=== PATIENT | female | born 1970 | race Caucasian/White ===

== ENCOUNTER 2025-07-13 05:48 | Inpatient (IN) ==
--- NOTE | 2025-07-01 15:18 | PAT Medication Instructions ---
Medication Instructions Date of Service July 01, 2025 Home Medications Medication Instructions Recorded lisinopril 20 mg tablet 20 mg PO QAM #90 tabs 01/14/25 venlafaxine 150 mg 150 mg PO QAM #90 caps 01/14/25 capsule,extended release 24 hr albuterol sulfate 90 mcg/actuation 2 puff inhalation Q6H PRN 05/12/25 aerosol inhaler shortness of breath or wheezing #6.7 grams gabapentin 800 mg tablet 800 mg PO TID PRN pain #90 tabs 05/12/25 semaglutide 2 mg/dose (8 mg/3 mL) 2 mg (0.75 mL) subcut Q7D #3 mL 05/12/25 subcutaneous pen injector furosemide 20 mg tablet (Lasix) 20 mg PO QAM #90 tabs 06/02/25 ondansetron HCl 4 mg tablet 4 mg PO BID PRN nausea and 06/02/25 vomiting #60 tabs celecoxib 200 mg capsule (Celebrex) 200 mg PO QAM #90 caps 07/01/25 multivitamin 1 tab PO QAM Saccharomyces boulardii 250 mg capsule (Daily Probiotic (S. boulardii)) 250 mg PO QAM lisinopril 20 mg tablet 20 mg PO QAM venlafaxine 150 mg capsule,extended release 24 hr 150 mg PO QAM albuterol sulfate 90 mcg/actuation aerosol inhaler 2 puff inhalation Q6H PRN shortness of breath or wheezing gabapentin 800 mg tablet 800 mg PO TID PRN pain semaglutide 2 mg/dose (8 mg/3 mL) subcutaneous pen injector 2 mg (0.75 mL) subcut Q7D furosemide 20 mg tablet (Lasix) 20 mg PO QAM ondansetron HCl 4 mg tablet 4 mg PO BID PRN nausea and vomiting celecoxib 200 mg capsule (Celebrex) 200 mg PO QAM duloxetine 40 mg capsule,delayed release 40 mg PO QAM fluticasone 100 mcg-salmeterol 50 mcg/dose blistr powdr for inhalation (Advair Diskus) 1 inh inhalation QAM lidocaine 5 % topical patch 1 patch topical DAILY PRN Pain omeprazole 40 mg capsule,delayed release 40 mg PO QAM Continue as directed lidocaine 5 % topical patch 1 patch topical DAILY PRN Pain (just do not put on or near surgery site) ASK your surgeon for instructions celecoxib 200 mg capsule (Celebrex) 200 mg PO QAM STOP taking at least 7 days before surgery semaglutide 2 mg/dose (8 mg/3 mL) subcutaneous pen injector 2 mg (0.75 mL) subcut Q7D DO NOT take the morning of surgery multivitamin 1 tab PO QAM Saccharomyces boulardii 250 mg capsule (Daily Probiotic (S. boulardii)) 250 mg PO QAM lisinopril 20 mg tablet 20 mg PO QAM furosemide 20 mg tablet (Lasix) 20 mg PO QAM Take morning of surgery With a small sip of water, OTHERWISE NOTHING TO EAT OR DRINK AFTER MIDNIGHT: venlafaxine 150 mg capsule,extended release 24 hr 150 mg PO QAM albuterol sulfate 90 mcg/actuation aerosol inhaler 2 puff inhalation Q6H PRN shortness of breath or wheezing (use if needed; please bring with you to hospital day of surgery if possible) gabapentin 800 mg tablet 800 mg PO TID PRN pain (if needed) ondansetron HCl 4 mg tablet 4 mg PO BID PRN nausea and vomiting (if needed) duloxetine 40 mg capsule,delayed release 40 mg PO QAM fluticasone 100 mcg-salmeterol 50 mcg/dose blistr powdr for inhalation (Advair Diskus) 1 inh inhalation QAM omeprazole 40 mg capsule,delayed release 40 mg PO QAM Take evening before surgery albuterol sulfate 90 mcg/actuation aerosol inhaler 2 puff inhalation Q6H PRN shortness of breath or wheezing (if needed) gabapentin 800 mg tablet 800 mg PO TID PRN pain (if needed) ondansetron HCl 4 mg tablet 4 mg PO BID PRN nausea and vomiting (if needed) Other Notes If you have any questions please call us at [phone] or [phone] or [phone] or [phone]
--- NOTE | 2025-07-06 13:15 | Anesthesiology Consultation ---
Date of Service July 06, 2025 Assessment & Plan (1) Encounter for pre-operative examination: - Check BSG, test DOS - Infectious disease screening: Per assessment on 07/06/25- No known recent infectious disease contacts or current infectious disease symptoms. - GLP-1 medication instructions: Patient informed by PAT to stop 7 days prior to surgery- voiced understanding. DOS 07/13. Advised last dose to be 07/06. - S/P Right Shoulder Arthroscopy, Rotator Cuff Repair, Extensive Debridement, Acromioplasty 02/12/25: "oral airway inserted. Bottom teeth extremely loose. Poor dentition. Front gums + bottom front gums bleeding from oral airway. glidescope inserted. teeth as preop. Will monitor closely." > Grade 1 view, Glidescope#3, ETT 7.0 + regional, [facility] - Patient concern: Patient worried about waking up too early from surgery or being given too much. Anxious regarding upcoming surgery/anesthesia. Chart Review Chart Review: Acceptable Risk for Surgery (pending evaluation DOS) and Patient seen in Pre Admission Testing Teaching & Discussion Pre-Anesthesia Teaching/Discussion Notes: Instructed NPO after midnight before surgery,except medications with 15 cc of water. Medication instructions provided according to the PAT guidelines. History Surgery Operation Date: 07/13/25 07:30 Proposed Procedures p L4-L5 Extreme Lateral Interbody Fusion Percutaneous Post Instrumentation, Spinal Cord Monitoring - Clint Taylor MD Height/Weight Height: 5 ft 8 in Weight: 139.6 kg Allergies Allergy/AdvReac Type Severity Reaction Status Date / Time tetracycline Allergy Severe Hives Verified 07/01/25 14:02 ketorolac [From Toradol] AdvReac Intermediate Abdominal Verified 07/01/25 14:02 Pain tramadol AdvReac Intermediate Abdominal Verified 07/01/25 14:02 Pain Medications Home Medications Medication Instructions Recorded Confirmed Last Taken multivitamin 1 tab PO QAM 12/24/24 07/01/25 02/05/25 Saccharomyces boulardii 250 mg 250 mg PO QAM 12/26/24 07/01/25 1 Week Ago capsule (Daily Probiotic (S. ~02/05/25 boulardii)) lisinopril 20 mg tablet 20 mg PO QAM #90 tabs 01/14/25 07/01/25 02/12/25 07:30 venlafaxine 150 mg 150 mg PO QAM #90 caps 01/14/25 07/01/25 02/12/25 07:30 capsule,extended release 24 hr albuterol sulfate 90 mcg/actuation 2 puff inhalation Q6H PRN 05/12/25 07/01/25 Unknown aerosol inhaler shortness of breath or wheezing #6.7 grams gabapentin 800 mg tablet 800 mg PO TID PRN pain #90 tabs 05/12/25 07/01/25 Unknown semaglutide 2 mg/dose (8 mg/3 mL) 2 mg (0.75 mL) subcut Q7D #3 mL 05/12/25 07/01/25 Unknown subcutaneous pen injector furosemide 20 mg tablet (Lasix) 20 mg PO QAM #90 tabs 06/02/25 07/01/25 Unknown ondansetron HCl 4 mg tablet 4 mg PO BID PRN nausea and 06/02/25 07/01/25 Unknown vomiting #60 tabs celecoxib 200 mg capsule (Celebrex) 200 mg PO QAM #90 caps 07/01/25 Unknown duloxetine 40 mg capsule,delayed 40 mg PO QAM 07/01/25 07/01/25 Unknown release fluticasone 100 mcg-salmeterol 50 1 inh inhalation QAM 07/01/25 07/01/25 Unknown mcg/dose blistr powdr for inhalation (Advair Diskus) lidocaine 5 % topical patch 1 patch topical DAILY PRN Pain 07/01/25 07/01/25 Unknown omeprazole 40 mg capsule,delayed 40 mg PO QAM #90 caps 07/06/25 Unknown release Past Medical History Medical History Anxiety Asthma DM2 (diabetes mellitus, type 2) Ozempic weekly Dysphagia Chronic, now rare episode r/t food, improved with omeprazole Fibromyalgia HTN (hypertension), benign Hx of gout Hx of hepatitis C Non-detectable now (s/p oral med treatment) Hx of ovarian cyst Low back pain Obesity, morbid, BMI 40.0-49.9 Osteoarthritis Post traumatic stress disorder Restless leg syndrome Spinal stenosis Spondylolisthesis at L4-L5 level Seeing [place] pain managment Exercise / Class Metabolic Activity III < 4 Walking/Shop/Light housework Past Family History Family History Mother Diabetes Grandmother (Maternal) Rheumatoid arthritis Osteoporosis Heart disease Other No family history of adverse response to anesthesia Past Surgical History Surgical History H/O breast biopsy benign H/O shoulder surgery (02/12/25) Right Shoulder Arthroscopy, Rotator Cuff Repair, Extensive Debridement, Acromioplasty: "oral airway inserted. Bottom teeth extremely loose. Poor dentition. Front gums + bottom front gums bleeding from oral airway. glidescope inserted. teeth as preop. Will monitor closely." > Grade 1 view, Glidescope#3, ETT 7.0 + regional, [facility] History of cholecystectomy (2020) History of esophagogastroduodenoscopy (EGD) 12/2024 History of postoperative nausea and vomiting History of tooth extraction Hx of section x1 Hx of colonoscopy 12/2024 Hx of dilation and curettage Hx of tonsillectomy Past Anesthesia History No Hx of Anesthesia Complications and No Family Hx of Anesthesia Complications History of PONV History of PONV (Single episode) and Hx of Motion Sickness Social History Smoking Status: Never smoker Do You Dip or Chew Tobacco: No Hx Alcohol Use: Yes Alcohol type: wine alcohol intake frequency: holidays/special occasions only substance use type: does not use Review of Systems Asthma improved (since moving to the area), currently at baseline Patient denies chest pain, shortness of breath, fever, chills, cough, wheezing, palpitations. Physical Exam Vital Signs BP 108/70 P 80 TEMP 98.1 SP02 96%RA RESP 16 Physical Full cervical extension range of motion. Full TMJ range of motion. TMD > 3.5 finger breaths Mallampati Score III Dentition: missing molars/sides, + loose teeth (specifically lower front per patient), multiple chipped teeth (including right side/left upper side tooth "chip" remaining) Lungs: clear throughout to auscultation Cardiac: regular rate and rhythm, no murmurs noted Spine: normal Carotid arteries: negative bruit Extremities: no LE edema Lab Results Anesthesia Preop Results Results Anesthesia Widget: WBC 10.78 K/ul (4.8-10.8) 07/06/25 Hgb 13.1 g/dL (12.0-16.0) 07/06/25 Hct 40.6 % (37.0-47.0) 07/06/25 Plt 250 K/uL (130-400) 07/06/25 Na 136 mmol/L (136-145) 07/06/25 K 4.4 mmol/L (3.5-5.1) 07/06/25 Cl 100 mmol/L (98-107) 07/06/25 CO2 29 mmol/L (21-32) 07/06/25 BUN 11 mg/dl (6-23) 07/06/25 Creat 0.62 mg/dl (0.6-1.2) 07/06/25 Glucose Level 123 mg/dl (70-99(Fasting)) H 07/06/25 PT 11.4 Seconds (9.0-12.0) 07/06/25 PTT 27 Seconds (21-31) 07/06/25 INR 1.1 (0.9-1.1) 07/06/25 HA1c 6.7 % (4.5-5.6) H 07/06/25 Blood Type O Negative 07/06/25 Antibody Screen NEGATIVE 07/06/25 Testing Electrocardiogram Date: 07/06/25 NSR at 85bpm. Low voltage QRS. Isolated inferior lead III TWI. Chest X-Ray Date: 03/15/25 IMPRESSION: 1. Study limited by the patient's body habitus. 2. Cardiomegaly.
[2025-07-13] MEDS: LR 60ML/HR IV SCH (06:15)
[2025-07-13] MEDS: ACETAMINOPHEN 500 MG TAB PO SCH (06:15)
[2025-07-13] MEDS: LR 15ML/HR IV SCH (06:16)
[2025-07-13] MEDS ORDERED: MIDAZOLAM HCL 1 MG/ML 2ML VIAL ONE ×2 (06:35→08:39)
[2025-07-13] MEDS ORDERED: DEXAMETHASONE SOD INJ 4 MG/ML VIAL ONE (06:35)
[2025-07-13] MEDS ORDERED: PROPOFOL IV EMULSION 10 MG/ML 20 ML VIAL IV ONE ×4 (06:35→11:51)
[2025-07-13] MEDS ORDERED: ONDANSETRON INJ 2 MG/ML 2 ML VIAL ONE (06:35)
[2025-07-13] MEDS ORDERED: LIDOCAINE 2% 2 ML VIAL/AMP(20MG/ML) INFIL ONE (06:35)
[2025-07-13] MEDS ORDERED: ROCURONIUM BROMIDE 10 MG/ML 5 ML VIAL IV ONE (06:35)
[2025-07-13] MEDS ORDERED: REMIFENTANIL HCL 1 MG VIAL IV ONE ×2 (06:44→11:07)
[2025-07-13] MEDS ORDERED: PROPOFOL IV EMULSION 10 MG/ML 100 ML VIAL IV ONE ×3 (06:45→11:10)
[2025-07-13] MEDS ORDERED: DexMEDEtomidine HCL IV 100 MCG/ML VIAL IV ONE (07:04)
[2025-07-13] MEDS ORDERED: ONDANSETRON INJ 2 MG/ML 2 ML VIAL IV PRN ×2 (07:07→13:35)
[2025-07-13] MEDS ORDERED: PROMETHAZINE HCL 6.25 MG in SODIUM CHLORIDE 0.9% 50 ML IV PRN (07:07)
[2025-07-13] MEDS ORDERED: ATROPINE SULFATE 0.1 MG/ML 10ML SYR IV PRN (07:07)
--- NOTE | 2025-07-13 07:20 | History & Physical Bridge Note ---
Date of Service July 13, 2025 History & Physical Bridge Note I have examined the patient, reviewed the History & Physical and in the interval since the performance of the History & Physical I have noted the following changes of clinical significance: no changes noted
[2025-07-13] MEDS ORDERED: KETAMINE HCL 10MG/ML SYR ONE (07:36)
[2025-07-13] MEDS ORDERED: SUCCINYLCHOLINE CHLORIDE 20 MG/ML 10 ML VIAL IV ONE (07:47)
[2025-07-13] MEDS ORDERED: GLYCOPYRROLATE 0.2 MG/ML VIAL ONE (08:10)
[2025-07-13] MEDS ORDERED: SUGAMMADEX SODIUM 200 MG/2 ML VIAL IV ONE (08:22)
[2025-07-13] MEDS: ceFAZolin 3000MG 3,000 MG/72.5 ML BAG IV SCH (08:27)
[2025-07-13] MEDS ORDERED: TRANEXAMIC ACID / 0.7% NACL 1000MG/100ML BAG IV ONE (11:11)
[2025-07-13] MEDS: TRANEXAMIC ACID 100 MG/ML 10 ML VIAL IV ONE (11:15)
[2025-07-13] MEDS ORDERED: ceFAZolin 330 MG/ML 1 GM VIAL ONE (11:59)
[2025-07-13] MEDS ORDERED: HYDROmorphone INJ 2 MG/ML SYR/VIAL ONE (12:57)
[2025-07-13] MEDS: TRANEXAMIC ACID / 0.7% NACL 1000MG/100ML BAG IV ONE (13:00)
[2025-07-13] MEDS: GELATIN SPONGE 12-7MM ONE (13:09)
[2025-07-13] MEDS: THROMBIN 5000 UNITS KIT ONE (13:09)
[2025-07-13] MEDS: VANCOMYCIN HCL 1000MG/20ML VIAL ONE (13:09)
[2025-07-13] MEDS: BUPIVACAINE/EPINEPHRINE 0.5% MPF 1:200,000 30 ML VIAL ONE (13:10)
[2025-07-13] MEDS ORDERED: DO NOT ADMINISTER FLU VACCINE PRN (13:35)
[2025-07-13] MEDS ORDERED: NALOXONE HCL 0.4 MG/1 ML VIAL/CARP IV PRN (13:35)
[2025-07-13] MEDS ORDERED: PROMETHAZINE 12.5 MG/50.5 ML BAG IV PRN (13:35)
[2025-07-13] MEDS ORDERED: ACETAMINOPHEN 500 MG TAB PO PRN (13:35)
[2025-07-13] MEDS ORDERED: DO NOT ADMINISTER PNEUMOCOCCAL VACCINE PRN (13:35)
[2025-07-13] MEDS ORDERED: ONDANSETRON 4 MG OD TAB PO PRN ×2 (13:35→15:38)
[2025-07-13] MEDS ORDERED: SOD PHOSPHATE/SOD BIPHOSPHATE ENEMA 132 ML BTL PR PRN (13:35)
[2025-07-13] MEDS ORDERED: MAGNESIUM HYDROXIDE SUSP 30 ML UDC PO PRN (13:35)
[2025-07-13] MEDS ORDERED: FAMOTIDINE 20 MG TAB PO PRN (13:35)
[2025-07-13] MEDS ORDERED: METOCLOPRAMIDE HCL INJ 5 MG/ML 2 ML VIAL IV PRN (13:35)
[2025-07-13] MEDS ORDERED: ALUMINUM/MAGNESIUM SUSP 30 ML UDC PO PRN (13:35)
--- NOTE | 2025-07-13 13:35 | Post Operative Brief Note ---
PG Immediate Post Op with CF Date of Surgery July 13, 2025 Pre & Post Diagnosis Operation Date: 07/13/25 07:30 Pre-Op Diagnosis: (1) Spondylolisthesis at L4-L5 Level (2) Low back pain radiating to left leg (3) Lumbar facet joint syndrome (4) Chronic low back pain (5) Obesity Post-Op Diagnosis: (1) Spondylolisthesis at L4-L5 Level (2) Low back pain radiating to left leg (3) Lumbar facet joint syndrome (4) Chronic low back pain (5) Obesity I identified the patient and participated in the time-out.: Yes Procedure Operation Date: 07/13/25 07:30 Actual Procedures p L4-L5 Extreme Lateral Interbody Fusion Percutaneous Posterior Instrumentation, Spinal Cord Monitoring(Not Applicable) - Clint Taylor MD Surgeon Clint Taylor MD Occasional Caregiver none Estimated Blood Loss 100 Findings Consistent with Post-Op Diagnosis Specimens Specimen Description: No specimen per surgeon Drains Peña Catheter (16Fr inserted without difficulty prior to start of procedure. Clear yellow urine noted.)
[2025-07-13] MEDS ORDERED: PHARMACY GLYCEMIC MGMT CONSULT PRN (13:40)
--- NOTE | 2025-07-13 14:15 | Anesthesiology Progress Note ---
Date of Service July 13, 2025 Anesthesia Post Procedure Vital Signs Vital Signs: Temp Pulse Pulse Resp BP Pulse Ox O2 Del Method 07/13/25 14:10 83 14 155/83 H 95 Oxymask 07/13/25 14:00 85 18 149/69 H 98 Oxymask 07/13/25 13:50 88 16 138/80 97 Oxymask 07/13/25 13:41 36.1 C L 82 12 152/90 H 97 Oxymask 07/13/25 06:05 36.8 C 92 H 20 139/91 96 Room Air O2 Flow Rate 07/13/25 14:10 3 07/13/25 14:00 6 07/13/25 13:50 6 07/13/25 13:41 6 07/13/25 06:05 Pain Intensity Left Lower Back: Pain Intensity: 9 Transfer of Care Handoff Completed per policy Notes Mental Status: alert / awake / arousable Patient Amnestic to Procedure: Yes Nausea / Vomiting: adequately controlled Pain: improving with treatment Airway Patency, RR, SpO2: stable & adequate BP & HR: stable & adequate Hydration State: stable & adequate Anesthetic Complications: no major complications apparent
[2025-07-13] MEDS: HYDROmorphone INJ 2 MG/ML SYR/VIAL IV PRN (14:17)
--- NOTE | 2025-07-13 14:35 | Fluoroscopy Report ---
FL lumbar spine 2-3V CLINICAL HISTORY: L4-L5 INTERBODY FUSION COMPARISON STUDY: Lumbar spine MRI December 03, 2024. Lumbar spine radiographs July 01, 2025. Fluoroscopy time: 250 seconds. Number of fluoroscopic images: 8. Ka,r: 320.46 mGy. FINDINGS: Fluoroscopy was provided during L4-L5 discectomy and fusion. IMPRESSION: Fluoroscopy provided during L4-L5 discectomy and fusion. ACT 112: Negative or not required by law. Electronically signed by: Dedrick Alan M.D. 07/13/2025 2:33 PM
[2025-07-13] MEDS ORDERED: CARBOHYDRATES FOR HYPOGLYCEMIA PO PRN (14:45)
[2025-07-13] MEDS ORDERED: DEXTROSE 50% 50 ML SYRINGE IV PRN (14:45)
[2025-07-13] MEDS ORDERED: GLUCOSE 40% GEL 15 GM TUBE PO PRN (14:45)
[2025-07-13] MEDS ORDERED: GLUCOSE 10 TAB/TUBE PO PRN (14:45)
[2025-07-13] MEDS ORDERED: GLUCAGON FOR INJ 1 MG VIAL SQ PRN (14:45)
--- NOTE | 2025-07-13 14:48 | Pharmacy Report ---
Pharmacy Glycemic Short Note 2 - Date of Service July 13, 2025 - Glycemic Short BSG Results (Last 24 hours): 07/13/25 07/13/25 06:06 14:00 POC Glucose 163 H 210 H OUTPATIENT ANTIDIABETIC REGIMEN: * To start Nilo, previously on ozempic * A1c 6.7% 07/06/25 ASSESSMENT: * Patient admitted POD #0. Pre-post op BSGs 163-210 mg/dL. Received 8 mg of dexamethasone IV. * Patient is insulin naive, with A1c <7%, however given steroids and already elevated BSG will give 1x lantus dose ~0.35 units/kg (adjusted body weight) and start weight stress 3 (adjusted body weight) novolog. Add overnight checks * Monitor for additional needs/adjustments PLAN FOR INPATIENT GLYCEMIC CONTROL: * Hold outpatient oral diabetes medications * Basal insulin * Lantus 30 units SQ x1 * Bolus insulin * NovoLog per scale ACHS or Q6hrs while NPO * Goal Range: Low 110 mg/dL - High 160 mg/dL * Correction Factor: 15 mg/dL/unit * Nutritional / Prandial insulin per carb ratio of 1 unit per 6 grams CHO consumed
[2025-07-13] MEDS ORDERED: ALBUTEROL HFA 8 GM INHALER INH PRN (15:20)
[2025-07-13] MEDS: HYDROmorphone INJ 1 MG/ML SYRINGE IV PRN (15:25)
--- NOTE | 2025-07-13 15:43 | Operative Report ---
PG Post Operative Report Pre & Post Diagnosis Operation Date: 07/13/25 07:30 Pre-Op Diagnosis: (1) Spondylolisthesis at L4-L5 Level (2) Low back pain radiating to left leg (3) Lumbar facet joint syndrome (4) Chronic low back pain (5) Obesity Post-Op Diagnosis: (1) Spondylolisthesis at L4-L5 Level (2) Low back pain radiating to left leg (3) Lumbar facet joint syndrome (4) Chronic low back pain (5) Obesity I identified the patient and participated in the time-out.: Yes Procedure Operation Date: 07/13/25 07:30 Actual Procedures p L4-L5 Extreme Lateral Interbody Fusion Percutaneous Posterior Instrumentation, Spinal Cord Monitoring(Not Applicable) - Clint Taylor MD Surgeon Clint Taylor MD Costume Draper none Estimated Blood Loss 100 Findings Consistent with Post-Op Diagnosis Specimens none Description of Procedure 1. L4-5 right lateral interbody arthrodesis. (88961) 2. L4-5 interbody cage, NuVasive cohere XL, 10 x 22 x 50 mm lordotic. (09849) 3. L4-5 posterior nonsegmental instrumentation, Medtronic, solera. (16638) 4. Stereotactic CT guided navigation for instrumentation, [employer] robotic assistance. (96730) Patient taken operating room and after adequate anesthesia was carefully positioned in the left lateral decubitus position right side up on the [place] table in carefully checked for positioning. After doing so a preprepped was performed for the right lateral and posterior region, the patient was secured to the table in the routine fashion for a lateral approach to the L4-5 level. After checking for the position using fluoroscopy, an adjustments made to the table for access to the right side of L4-5, patient underwent prep and drape. Transverse incision was then made after checking with fluoroscopy for the location of the incision over the right iliac crest. From here I dissected down in routine fashion was able to gain access to the retroperitoneal region where I was able to palpate the psoas and then from there insert the initial dilator from the NuVasive system on the lateral aspect of L4-5 confirmed with fluoroscopy. I then did monitoring, a guidewire was then placed under fluoroscopic control followed by then advancing the additional dilators, eventually the access apparatus. I then made adjustments to the position under fluoroscopic control, the area was visualized and checked with the probe in routine fashion. At this point I then inserted the lamar, the overall position was checked on fluoroscopy, and I began the procedure with a discectomy on the right side at L4-5. Annulotomy was performed, a thorough discectomy was performed using a variety of different instruments. Upon completion of this task, I then inserted dilators and trials, selected the size cage as noted. This cage was packed with fusion materials as was the disc space, and this was then inserted into the interspace under fluoroscopic control with excellent position on AP and lateral views. I then checked the position on fluoroscopy, final images were obtained, removal of the access apparatus did not reveal any issues. The operative site was irrigated vancomycin powder was placed, this was closed with 0 and 2-0 Vicryl suture madeleine for the skin and sterile dressing was applied. Patient was reposition on the Luke frame and checked for positioning, a prep and drape was performed, I began the procedure with locating the right posterior iliac crest region, this was with fluoroscopic assistance, and a guide post was then placed followed by the access apparatus of the robot attached to the guide post. The O-arm was then brought into the operating room where we then performed a spin after checking all the instrumentation. Using the navigation and robot, I then marked for the area of the incisions for the insertion of the screws, a linear incision was made connecting the 2 locations for the insertion of the pedicle screws on each side. After doing so the initial dilator was placed for starting at L4 on the left, followed by then the drill through the robot assist guide arm and navigation. I then followed this with tap and then insertion of 6.5 millimeter screw, 50 mm screws were utilized at L4 and 45 mm screws were inserted at L5. In a similar fashion a screw was inserted on the left sided L5 and then we moved to the opposite side where the same procedure was performed with insertion of the L4 and L5 pedicle screws. A spin was then performed with the O-arm, all the hardware was found to be in a proper position and monitoring was utilized to check the screws all with greater than 20 readings. The areas were then irrigated, I then measured and inserted the rods connecting the pedicle screws, these were inserted followed by the setscrews which were all torqued down properly, final imaging with C arm was brought in showing the rods to be in proper position with reduction of the spondylolisthesis. Vancomycin powder was placed in the insertion sites followed by closure with 0 and 2-0 Vicryl sutures and madeleine for the skin. Sterile dressing was applied, the patient was taken recovery room in satisfactory condition. I attest to the content of the Intraoperative Record and any orders documented therein. Any exceptions are noted below.
[2025-07-13] MEDS ORDERED: LANTUS PER UNIT CHARGE SC SCH (16:30)
[2025-07-13] MEDS: LORazepam Inj 0.5 MG in SYRINGE 0.25 ML IV PRN (17:06)
--- NOTE | 2025-07-13 17:45 | Hospitalist Consultation ---
Date of Consultation July 13, 2025 Assessment & Plan (1) DM2 (diabetes mellitus, type 2): (2) Obesity: (3) HTN (hypertension), benign: (4) Anxiety: Plan This patient is a 54-year-old female with a history of morbid obesity BMI 46.9, DM2, HTN, depression/anxiety, lumbar radiculopathy, history of IVDA and hepatitis C now s/p curative treatment, perimenopause, asthma, GERD, and fibromyalgia, who was admitted to the hospital after lumbar decompression and fusion. Hospitalist service consulted for medical management postoperatively. #S/p lumbar fusion-having some expected postoperative pain - Postoperative management as per orthopedic surgery - Pain control, bowel regimen as per surgeon - Continue home gabapentin as needed - Follow CBC, BMP in the morning #DM2/morbid obesity BMI 46.9-follows with endocrinology, working on weight loss. Currently on Ozempic but switching to Mounjaro - Follow-up with endocrinology - Start Mounjaro after discharge - Pharmacy glycemic control was consulted by primary surgeon-managing insulin postoperatively #HTN-blood pressures are modestly elevated but could be secondary to pain postoperatively. She did not take her Lasix and lisinopril on the morning of surgery - Okay to continue home Lasix and lisinopril in the morning - Follow BMP #Depression/anxiety/fibromyalgia/perimenopause symptoms-no acute issues - Continue home duloxetine, venlafaxine #GERD-no acute issues - Continue home PPI #Mild intermittent asthma-no acute issues, currently on supplemental O2 postop eratively - Incentive spirometry - Albuterol as needed DVT prophylaxis-SCDs Disposition-continued stay medical/surgical unit, hospitalist service will follow along History of Present Illness Reason for Consultation: Medical management Requesting Physician: Dr. Taylor Attending Physician: Clint Taylor MD History of Present Illness This patient is a 54-year-old female with a history of morbid obesity BMI 46.9, DM2, HTN, depression/anxiety, lumbar radiculopathy, history of IVDA and hepatitis C now s/p curative treatment, perimenopause, asthma, GERD, and fibromyalgia, who was admitted to the hospital after lumbar decompression and fusion. She is having some fairly significant pain in the lower back and some c ramping in the left hip area and is receiving pain medication. Denies chest pains or shortness of breath. No nausea. Last bowel movement the morning of surgery. Hospitalist services consulted for medical management postoperatively. Allergies Allergy/AdvReac Type Severity Reaction Status Date / Time tetracycline Allergy Severe Hives Verified 07/13/25 06:06 shellfish derived Allergy Hives Verified 07/13/25 06:15 ketorolac [From Toradol] AdvReac Intermediate Abdominal Verified 07/13/25 06:06 Pain tramadol AdvReac Intermediate Abdominal Verified 07/13/25 06:06 Pain Home Medications Medication Instructions Recorded Confirmed Type multivitamin 1 tab PO QAM 12/24/24 07/13/25 History Saccharomyces boulardii 250 mg 250 mg PO QAM 12/26/24 07/13/25 History capsule (Daily Probiotic (S. boulardii)) lisinopril 20 mg tablet 20 mg PO QAM #90 tabs 01/14/25 07/13/25 Rx venlafaxine 150 mg 150 mg PO QAM #90 caps 01/14/25 07/13/25 Rx capsule,extended release 24 hr albuterol sulfate 90 mcg/actuation 2 puff inhalation Q6H PRN 05/12/25 07/13/25 Rx aerosol inhaler shortness of breath or wheezing #6.7 grams gabapentin 800 mg tablet 800 mg PO TID PRN pain #90 tabs 05/12/25 07/13/25 Rx furosemide 20 mg tablet (Lasix) 20 mg PO QAM #90 tabs 06/02/25 07/13/25 Rx ondansetron HCl 4 mg tablet 4 mg PO BID PRN nausea and 06/02/25 07/13/25 Rx vomiting #60 tabs celecoxib 200 mg capsule (Celebrex) 200 mg PO QAM #90 caps 07/01/25 07/13/25 Rx duloxetine 40 mg capsule,delayed 40 mg PO QAM 07/01/25 07/13/25 History release fluticasone 100 mcg-salmeterol 50 1 inh inhalation QAM 07/01/25 07/13/25 History mcg/dose blistr powdr for inhalation (Advair Diskus) lidocaine 5 % topical patch 1 patch topical DAILY PRN Pain 07/01/25 07/13/25 History omeprazole 40 mg capsule,delayed 40 mg PO QAM #90 caps 12/08/25 12/15/25 Rx release tirzepatide 7.5 mg/0.5 mL 7.5 mg (0.5 mL) subcut ONCE #2 mL 07/08/25 07/13/25 Rx subcutaneous pen injector (Nilo) Patient History Medical History Hx of ovarian cyst Spinal stenosis Hx of gout Osteoarthritis Post traumatic stress disorder Anxiety Restless leg syndrome Hx of hepatitis C Non-detectable now (s/p oral med treatment) Fibromyalgia Spondylolisthesis at L4-L5 level Seeing [facility] pain managment Low back pain Dysphagia Chronic, now rare episode r/t food, improved with omeprazole Obesity, morbid, BMI 40.0-49.9 HTN (hypertension), benign Asthma Surgical History Hx of tubal ligation H/O shoulder surgery (02/12/25) Right Shoulder Arthroscopy, Rotator Cuff Repair, Extensive Debridement, Acromioplasty: "oral airway inserted. Bottom teeth extremely loose. Poor dentition. Front gums + bottom front gums bleeding from oral airway. glidescope inserted. teeth as preop. Will monitor closely." > Grade 1 view, Glidescope#3, ETT 7.0 + regional, [facility] H/O breast biopsy benign History of tooth extraction History of postoperative nausea and vomiting History of esophagogastroduodenoscopy (EGD) 12/2024 Hx of colonoscopy 12/2024 Hx of dilation and curettage Hx of tonsillectomy Hx of section x1 History of cholecystectomy (2020) Family History Mother Diabetes Grandmother (Maternal) Rheumatoid arthritis Osteoporosis Heart disease Other No family history of adverse response to anesthesia Social History Smoking Status: Never smoker Second Hand Exposure: Yes (as a child); Do You Dip or Chew Tobacco: No; Hx Alcohol Use: Yes Alcohol type: wine Alcohol Intake Frequency: Monthly or Less Preferred Language: Afghan Communication Ability: Effective Visual Impairment: Limited Hearing Ability: Normal 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 current occupational status: employed How many Children do You have: 4 Feels Safe at Home: Yes Safety Concerns: Feels Safe At This Time Childhood Exposure to Second-Hand Smoke: Yes Diet: diabetic and regular caffeine: Yes during the past year weight has: remained stable Dental Care, Regularly: No Physical Activity Frequency: Does not Exercise Seatbelt Use: always Sunscreen Use: Yes Do you think of yourself as: straight/heterosexual Sexual Activity: has been sexually active within the last 12 months Gender Identity: Female Assistive Devices: Glasses Review of Systems Review of Systems: All systems reviewed & are unremarkable except as noted in HPI & below Physical Exam Constitutional: WD/WN, vitals as above + morbidly obese Eyes: + anicteric sclerae Neck: trachea midline, no thyromegaly Respiratory: normal respiratory effort, lungs clear to auscultation Cardiovascular: RRR, no murmur, no edema Chest (Breasts): Chest: normal inspection of chest Gastrointestinal (Abdomen): normal bowel sounds, soft, nontender, no hepatosplenomegaly Musculoskeletal: Extremities: extremities normal to inspection; no cyanosis and no clubbing Skin: no rashes, warm and dry Neurologic: moves all extremities and awake; no focal motor deficits Psychiatric: A+Ox3, euthymic affect Lymphatic: no lymphedema Results & Data Results & Data Vital Signs (Past 12 Hours) Vital Signs Temp Pulse Pulse Resp BP Pulse Ox O2 Del Method 07/13/25 16:15 36.3 C L 92 H 18 161/91 H 95 Room Air 07/13/25 15:42 36.4 C L 90 18 160/90 H 94 Nasal Cannula 07/13/25 15:15 Nasal Cannula 07/13/25 15:15 36.4 C L 94 H 20 159/85 H 94 Nasal Cannula 07/13/25 15:00 85 13 150/90 H 94 Nasal Cannula 07/13/25 14:45 90 13 156/87 H 95 Nasal Cannula 07/13/25 14:30 87 15 150/83 H 96 Nasal Cannula 07/13/25 14:20 36.5 C 86 20 151/87 H 94 Oxymask 07/13/25 14:10 83 14 155/83 H 95 Oxymask 07/13/25 14:00 85 18 149/69 H 98 Oxymask 07/13/25 13:50 88 16 138/80 97 Oxymask 07/13/25 13:41 36.1 C L 82 12 152/90 H 97 Oxymask 07/13/25 06:05 36.8 C 92 H 20 139/91 96 Room Air O2 Flow Rate 07/13/25 16:15 07/13/25 15:42 2 07/13/25 15:15 2 07/13/25 15:15 2 07/13/25 15:00 2 07/13/25 14:45 2 07/13/25 14:30 3 07/13/25 14:20 3 07/13/25 14:10 3 07/13/25 14:00 6 07/13/25 13:50 6 07/13/25 13:41 6 07/13/25 06:05 Laboratory Results Preoperative labs reviewed PG Care Time/CCT Total # of Minutes Spent Total Time Spent with Patient: Total time spent is greater than 50% in coordination of care (as documented) at patient's floor/unit and/or counseling patient: Coding Level of Care Code 23034 IN/OBS CONSULT LVL 3,45M Diagnoses Type 2 diabetes mellitus without complication, without long-term current use of insulin E11.9 Diabetes mellitus complication status: without complication Diabetes mellitus terminal superintendent insulin use: without skilled nursing use Obesity due to excess calories with serious comorbidity, unspecified class E66.09 Obesity classification: unspecified obesity classification Obesity type: due to excess calories Serious obesity comorbidity presence: with serious comorbidity HTN (hypertension), benign I10 Anxiety F41.9 (1) DM2 (diabetes mellitus, type 2) Diabetes mellitus complication status: without complication Diabetes mellitus skilled nursing insulin use: without terminal superintendent use Qualified Code(s): E11.9 - Type 2 diabetes mellitus without complications (2) Obesity Obesity classification: unspecified obesity classification Obesity type: due to excess calories Serious obesity comorbidity presence: with serious comorbidity Qualified Code(s): E66.09 - Other obesity due to excess calories
[2025-07-13] MEDS ORDERED: Nursing to Pharmacy Communication SCH (18:45)
[2025-07-13] MEDS: INSULIN ASPART PER UNIT CHARGE SC SCH ×2 (18:46→23:39)
[2025-07-13] MEDS: LANTUS PER UNIT CHARGE SC STA (18:53)
[2025-07-13] MEDS: INSULIN ASPART PER UNIT CHARGE SC STA (18:53)
[2025-07-13] MEDS: DOCUSATE SODIUM/SENNA 50/8.6MG TAB PO SCH (21:30)
[2025-07-14] MEDS: ACETAMINOPHEN 1,000 MG/100 ML VIAL IV PRN (00:02)
[2025-07-14] MEDS: POLYETHYLENE (MIRALAX) 17 GM PACK PO SCH (05:24)
[2025-07-14 06:37] LABS: Hematocrit (blood only) 38.5 % (37.0-47.0); Hemoglobin 12.6 g/dL (12.0-16.0); Immature Granulocytes # (auto) 0.08 K/uL (0.01-0.20); Immature Granulocytes % (auto) 0.5 %; Mean Corpuscular Hemoglobin 28.5 pg (25.0-34.0); Mean Corpuscular Volume 87.1 fL (80.0-100.0); Platelet Count 272 K/uL (130-400); RDW Standard Deviation 41.8 fL (36.4-46.3); Red Blood Count 4.42 M/uL (4.20-5.40); White Blood Count 17.03 K/ul (4.8-10.8)
[2025-07-14 06:58] LABS: Anion Gap 7.0 (3-11); Blood Urea Nitrogen 10.0 mg/dl (6-23); Carbon Dioxide 30.0 mmol/L (21-32); Chloride 99.0 mmol/L (98-107); Potassium 4.2 mmol/L (3.5-5.1); Sodium 136.0 mmol/L (136-145)
[2025-07-14 06:59] LABS: Calcium 9.2 mg/dl (8.6-10.3); Creatinine Clr Calc Pharmacy 167.1 ml/min; Glucose 169.0 mg/dl (70-99(Fasting))
--- NOTE | 2025-07-14 08:41 | Orthopedic Progress Note ---
Date of Service July 14, 2025 Assessment & Plan (1) Spondylolisthesis at L4-L5 level: * Continue Current Treatment * Disposition: TBD * Daily treatment: Physical Therapy/ Occupational Therapy per protocol * Weight bearing status: WBAT * Continue to monitor for ABLA * Pain control * DVT prophylaxis, stockings and SCDs * Office/hospital f/u 2 weeks for progress check and staple/suture removal * Plan for discharge tomorrow pending PT/OT clearance Subjective .Active Problems: S/p L4-L5 Extreme Lateral Interbody Fusion Percutaneous Posterior Instrumentation POD 1 54 y/o female s/p L4-L5 Extreme Lateral Interbody Fusion Percutaneous Posterior Instrumentation. Doing well overall, pain managed and improved function. Denies fever/chills, chest pain/SOB, nausea/vomiting. Otherwise no complaints. Review of Systems All systems reviewed & are unremarkable except as noted in HPI & below. Physical Exam . * General: Alert and oriented, no acute distress * Constitutional: well-developed, well-nourished. * Respiratory: Normal respiratory effort, no distress * Gastrointestinal: No tenderness to palpation, no rigidity or guarding. * Skin: No rash or lesion. * Neurologic: Grossly normal * Musculoskeletal: Surgical dressing CDI. Lumbar spine region without obvious deformity or overlying skin changes. Minimal tenderness of surgical region, otherwise no tenderness b/l buttock or LE. Lumbar flexion/extension and rotation ROM with minimal pain. AROM b/l hip flexion, knee flexion/extension, ankle flexion/extension intact. Sensation intact plantar/dorsal foot. Brisk capillary refill. Results & Data Results & Data Laboratory Results . Diagnostic Findings . Lumbar Spine X-Ray 07/13/25 07:30 FL lumbar spine 2-3V CLINICAL HISTORY: L4-L5 INTERBODY FUSION COMPARISON STUDY: Lumbar spine MRI December 03, 2024. Lumbar spine radiographs July 01, 2025. Fluoroscopy time: 250 seconds. Number of fluoroscopic images: 8. Ka,r: 320.46 mGy. FINDINGS: Fluoroscopy was provided during L4-L5 discectomy and fusion. IMPRESSION: Fluoroscopy provided during L4-L5 discectomy and fusion. ACT 112: Negative or not required by law. Electronically signed by: Dedrick Alan M.D. 07/13/2025 2:33 PM PG Care Time/CCT Total # of Minutes Spent Total Time Spent with Patient: Total time spent is greater than 50% in coordination of care (as documented) at patient's floor/unit and/or counseling patient: Coding Level of Care Code 12878 Post Operative Follow-Up Diagnoses Spondylolisthesis at L4-L5 level M43.16
[2025-07-14] MEDS: VENLAFAXINE HCL XR 150 MG CAPXR PO SCH (08:43)
[2025-07-14] MEDS: FUROSEMIDE 20 MG TAB PO SCH (08:44)
[2025-07-14] MEDS: FLUTICASONE/VILANTEROL 100/25MCG 14 PUFFS/INHALER INH SCH (08:44)
[2025-07-14] MEDS: GABAPENTIN 800 MG TAB PO PRN (10:12)
--- NOTE | 2025-07-14 12:19 | Hospitalist Progress Note ---
Date of Service July 14, 2025 Assessment & Plan (1) Spondylolisthesis at L4-L5 level: (2) DM2 (diabetes mellitus, type 2): (3) Obesity: (4) HTN (hypertension), benign: (5) Anxiety: Plan This patient is a 54-year-old female with a history of morbid obesity BMI 46.9, DM2, HTN, depression/anxiety, lumbar radiculopathy, history of IVDA and hepatitis C now s/p curative treatment, perimenopause, asthma, GERD, and fibromyalgia, who was admitted to the hospital after lumbar decompression and fusion. Hospitalist service consulted for medical management postoperatively. #S/p lumbar fusion - Postoperative management as per orthopedic surgery - Pain control, bowel regimen as per surgeon - Continue home gabapentin as needed - Leukocytosis of 17 suspect this is secondary to stress demargination from surgery/perioperative steroids. Afebrile, no signs of acute infection - Follow CBC, BMP in the morning #DM2/morbid obesity BMI 46.9 - follows with endocrinology, working on weight loss. Currently on Ozempic but switching to Mounjaro - Follow-up with endocrinology - Start Mounjaro after discharge - Pharmacy glycemic control was consulted by primary surgeon-managing insulin postoperatively #Mild intermittent asthma-no acute issues. Initially required supplemental O2 postoperatively, but now weaned off and stable on room air - Incentive spirometry Q1HWA - Albuterol as needed #HTN - Continue home Lasix and lisinopril #Depression/anxiety/fibromyalgia/perimenopause symptoms-no acute issues. Continue home duloxetine, venlafaxine #GERD-no acute issues. Continue home PPI DVT prophylaxis-SCDs Disposition-continued stay medical/surgical unit, hospitalist service will follow along Updated sister at bedside Admission and Anticipated Discharge Date Admission Date: July 14, 2025 Subjective Patient seen and evaluated in bedside chair with her sister present at bedside. She reports that her lower back pain is significant. She was concerned about her tongue. I evaluated her tongue and reassured her that it appears as though she bit her tongue sometime in the perioperative period, but there is no sign of thrush or infection. She has been voiding without difficulty postoperatively. She reports that she has passed gas but has not yet had a BM. She is well tolerating her diet. She denies headache, shortness of breath, chest pain, nausea, abdominal pain, urinary symptoms. She reports Dr. Taylor plans to discharge her tomorrow morning. She denies any additional complaints or concerns at this time. Physical Exam Physical Exam: General: No acute distress, nondiaphoretic, well-developed, well-nourished. Skin: Warm, dry. No rashes or peripheral edema noted. HEENT: PERRLA. Moist mucous membranes. Left anterolateral tongue with superficial ulceration consistent with biting her tongue, no bleeding. Cardiac: Regular rate and rhythm without murmurs gallops or rubs. Pulm: Clear to auscultation bilaterally without wheezes, rales or rhonchi. Normal respiratory effort. 95% on room air. Abdominal: Soft, nontender, nondistended. Bowel sounds present. MSK: Lumbar dressing clean dry and intact. Expected postoperative lumbar tenderness. Normal strength and sensation in lower extremities bilaterally. Neuro: A&O x3. No focal neurological deficits. Results & Data Results & Data Vital Signs (Past 12 Hours) Vital Signs Temp Pulse Pulse Resp BP Pulse Ox O2 Del Method 07/14/25 12:00 97.7 F 98 H 18 121/79 92 Room Air 07/14/25 08:04 97.5 F L 87 16 143/90 H 95 Room Air 07/14/25 04:23 97.5 F L 85 16 128/81 94 Room Air Laboratory Results Reviewed CBC with differential, BMP PG Care Time/CCT Total # of Minutes Spent Total Time Spent with Patient: Total time spent is greater than 50% in coordination of care (as documented) at patient's floor/unit and/or counseling patient: Coding Level of Care Code 83080 SUB INP/OBS CARE 2/35MIN Diagnoses Spondylolisthesis at L4-L5 level M43.16 Type 2 diabetes mellitus without complication, without long-term current use of insulin E11.9 Diabetes mellitus complication status: without complication Diabetes mellitus truck terminal manager insulin use: without longterm use Obesity due to excess calories with serious comorbidity, unspecified class E66.09 Obesity classification: unspecified obesity classification Obesity type: due to excess calories Serious obesity comorbidity presence: with serious comorbidity HTN (hypertension), benign I10 Anxiety F41.9 (2) DM2 (diabetes mellitus, type 2) Diabetes mellitus complication status: without complication Diabetes mellitus truck terminal manager insulin use: without longterm use Qualified Code(s): E11.9 - Type 2 diabetes mellitus without complications (3) Obesity Obesity classification: unspecified obesity classification Obesity type: due to excess calories Serious obesity comorbidity presence: with serious comorbidity Qualified Code(s): E66.09 - Other obesity due to excess calories
--- NOTE | 2025-07-14 12:37 | Pharmacy Report ---
Pharmacy Glycemic Short Note 2 - Date of Service July 14, 2025 - Glycemic Short BSG Results (Last 24 hours): 07/13/25 07/13/25 07/13/25 14:00 16:46 20:25 Glucose POC Glucose 210 H 202 H 241 H 07/13/25 07/14/25 07/14/25 23:36 04:09 06:14 Glucose 169 H POC Glucose 157 H 201 H 07/14/25 07/14/25 07:46 11:26 Glucose POC Glucose 144 H 138 H OUTPATIENT ANTIDIABETIC REGIMEN: * To start Mounjaro, previously on ozempic * A1c 6.7% 07/06/25 ASSESSMENT: 07/14/25: * Blood sugars elevated postoperatively, likely steroid-induced * No ongoing steroids, will loosen Novolog parameters today * Blood sugars reasonably well-controlled so far today (144 mg/dL and 138 mg/dL) * Low-dose basal insulin scale for this evening 07/13/25: * Patient admitted POD #0. Pre-post op BSGs 163-210 mg/dL. Received 8 mg of dexamethasone IV. * Patient is insulin naive, with A1c <7%, however given steroids and already elevated BSG will give 1x lantus dose ~0.35 units/kg (adjusted body weight) and start weight stress 3 (adjusted body weight) novolog. Add overnight checks * Monitor for additional needs/adjustments PLAN FOR INPATIENT GLYCEMIC CONTROL: * Basal insulin * Lantus 0-10-15 units SC HS * Bolus insulin * NovoLog per scale ACHS or Q6hrs while NPO * Goal Range: Low 110 mg/dL - High 160 mg/dL * Correction Factor: 25 mg/dL/unit * Nutritional / Prandial insulin per carb ratio of 1 unit per 8 grams CHO consumed
[2025-07-14] MEDS: LANTUS PER UNIT CHARGE SC SCH (20:32)
[2025-07-14] MEDS: LORazepam 0.5 MG TAB PO PRN (21:59)
[2025-07-15 07:24] LABS: Hematocrit (blood only) 41.4 % (37.0-47.0); Hemoglobin 13.1 g/dL (12.0-16.0); Mean Corpuscular Hemoglobin 27.9 pg (25.0-34.0); Mean Corpuscular Volume 88.3 fL (80.0-100.0); Platelet Count 334 K/uL (130-400); RDW Standard Deviation 43.3 fL (36.4-46.3); Red Blood Count 4.69 M/uL (4.20-5.40); White Blood Count 18.35 K/ul (4.8-10.8)
[2025-07-15 07:43] LABS: Anion Gap 9.0 (3-11); Blood Urea Nitrogen 17.0 mg/dl (6-23); Calcium 9.3 mg/dl (8.6-10.3); Carbon Dioxide 28.0 mmol/L (21-32); Chloride 97.0 mmol/L (98-107); Creatinine Clr Calc Pharmacy 136.5 ml/min; Glucose 172.0 mg/dl (70-99(Fasting)); Potassium 4.0 mmol/L (3.5-5.1); Sodium 134.0 mmol/L (136-145)
--- NOTE | 2025-07-15 08:33 | Orthopedic Progress Note ---
Date of Service July 15, 2025 Assessment & Plan (1) Spondylolisthesis at L4-L5 level: * Continue Current Treatment * Disposition: TBD * Daily treatment: Physical Therapy/ Occupational Therapy per protocol * Weight bearing status: WBAT * Continue to monitor for ABLA * Pain control, will add scheduled acetaminophen and methocarbamol, d/c higher dose Dilaudid * DVT prophylaxis, stockings and SCDs * Office/hospital f/u 2 weeks for progress check and staple/suture removal * PT cleared for return to home * Plan for discharge today vs tomorrow pending PT/OT clearance, pain control. Encourage return to home. Subjective .Active Problems: S/p L4-L5 Extreme Lateral Interbody Fusion Percutaneous Posterior Instrumentation POD 2 54 y/o female s/p L4-L5 Extreme Lateral Interbody Fusion Percutaneous Posterior Instrumentation. Low back and thigh pain/spasm overnight. Denies fever/chills, chest pain/SOB, nausea/vomiting. Otherwise no complaints. Review of Systems All systems reviewed & are unremarkable except as noted in HPI & below. Physical Exam . * General: Alert and oriented, no acute distress * Constitutional: well-developed, well-nourished. * Respiratory: Normal respiratory effort, no distress * Gastrointestinal: No tenderness to palpation, no rigidity or guarding. * Skin: No rash or lesion. * Neurologic: Grossly normal * Musculoskeletal: Surgical dressing CDI. Lumbar spine region without obvious deformity, moderate ecchymosis at surgical site. Minimal tenderness of tulio gical region to light touch, otherwise no tenderness b/l buttock or LE. Lumbar flexion/extension and rotation ROM with minimal pain. AROM b/l hip flexion, knee flexion/extension, ankle flexion/extension intact. Sensation intact plantar/dorsal foot. Brisk capillary refill. Results & Data Results & Data Laboratory Results . Diagnostic Findings . PG Care Time/CCT Total # of Minutes Spent Total Time Spent with Patient: Total time spent is greater than 50% in coordination of care (as documented) at patient's floor/unit and/or counseling patient: Coding Level of Care Code 14101 SUB INP/OBS CARE 2MIN Diagnoses Spondylolisthesis at L4-L5 level M43.16
[2025-07-15] MEDS: HYDROmorphone INJ 0.5 MG/0.5 ML SYR IV PRN (09:03)
[2025-07-15] MEDS: METHOCARBAMOL 500 MG TABLET PO SCH (09:09)
--- NOTE | 2025-07-15 14:03 | Hospitalist Progress Note ---
Date of Service July 15, 2025 Assessment & Plan (1) Spondylolisthesis at L4-L5 level: (2) DM2 (diabetes mellitus, type 2): (3) Obesity: (4) HTN (hypertension), benign: (5) Anxiety: Plan This patient is a 54-year-old female with a history of morbid obesity BMI 46.9, DM2, HTN, depression/anxiety, lumbar radiculopathy, history of IVDA and hepatitis C now s/p curative treatment, perimenopause, asthma, GERD, and fibromyalgia, who was admitted to the hospital after lumbar decompression and fusion. Hospitalist service consulted for medical management postoperatively. #S/p lumbar fusion - Postoperative management as per orthopedic surgery - Pain control, bowel regimen as per surgeon - Continue home gabapentin as needed - Leukocytosis of 18 suspect this is secondary to stress demargination from surgery/perioperative steroids. Afebrile, no signs of acute infection - Sinus tachycardia noted with HR inn 90-110s. Suspect this is secondary to pain. She has intermittently had tachycardia in 90-100s previously - Follow CBC in the morning #DM2/morbid obesity BMI 46.9 - follows with endocrinology, working on weight loss. Currently on Ozempic but switching to Mounjaro - Follow-up with endocrinology - Start Mounjaro after discharge - Pharmacy glycemic control was consulted by primary surgeon-managing insulin postoperatively #Mild intermittent asthma-no acute issues. Initially required supplemental O2 postoperatively, but now weaned off and stable on room air - Incentive spirometry Q1HWA - Albuterol as needed #HTN - Continue home Lasix and lisinopril #Depression/anxiety/fibromyalgia/perimenopause symptoms-no acute issues. Continue home duloxetine, venlafaxine #GERD-no acute issues. Continue home PPI DVT prophylaxis-SCDs Disposition-continued stay medical/surgical unit, hospitalist service will follow along Updated family members at bedside Admission and Anticipated Discharge Date Admission Date: July 14, 2025 Supervising Physician Co-Signing Physician Notes Attending Attestation - Chart reviewed, care plan d/w TIAGO Meneses. I agree with the blackwell components of her documentation. Luis Gant MD Subjective Patient seen and evaluated at bedside with family members present. She reports that her lower back has been extremely painful and she did not sleep much last night due to this. She reports she is staying in the hospital again tonight to get her pain under better control. She denies any additional complaints or concerns. She denies heart palpitations, chest pain, shortness of breath, abdominal pain, nausea. She continues to pass gas but has not yet had a BM. Physical Exam Physical Exam: General: No acute distress, nondiaphoretic, well-developed, well-nourished. Skin: Warm, dry. No rashes or peripheral edema noted. Cardiac: Regular rate and rhythm without murmurs gallops or rubs. Pulm: Clear to auscultation bilaterally without wheezes, rales or rhonchi. Normal respiratory effort. 93% on room air. Abdominal: Soft, nontender, nondistended. Bowel sounds present. MSK: Lumbar dressing clean dry and intact. Expected postoperative lumbar tenderness. Normal strength and sensation in lower extremities bilaterally. Neuro: A&O x3. No focal neurological deficits. Results & Data Results & Data Vital Signs (Past 12 Hours) Vital Signs Temp Pulse Pulse Resp BP Pulse Ox O2 Del Method 07/15/25 12:15 98.1 F 111 H 16 111/76 93 Room Air 07/15/25 08:37 97.5 F L 110 H 16 108/65 94 Room Air 07/15/25 07:30 Room Air 07/15/25 07:01 97.7 F 120 H 17 133/87 91 Room Air Laboratory Results Reviewed CBC, BMP PG Care Time/CCT Total # of Minutes Spent Total Time Spent with Patient: Total time spent is greater than 50% in coordination of care (as documented) at patient's floor/unit and/or counseling patient: Coding Level of Care Code 31652 SUB INP/OBS CARE 235MIN Diagnoses Spondylolisthesis at L4-L5 level M43.16 Type 2 diabetes mellitus without complication, without long-term current use of insulin E11.9 Diabetes mellitus complication status: without complication Diabetes mellitus halfway insulin use: without halfway use Obesity due to excess calories with serious comorbidity, unspecified class E66.09 Obesity classification: unspecified obesity classification Obesity type: due to excess calories Serious obesity comorbidity presence: with serious comorbidity HTN (hypertension), benign I10 Anxiety F41.9 (2) DM2 (diabetes mellitus, type 2) Diabetes mellitus complication status: without complication Diabetes mellitus halfway insulin use: without termite treater use Qualified Code(s): E11.9 - Type 2 diabetes mellitus without complications (3) Obesity Obesity classification: unspecified obesity classification Obesity type: due to excess calories Serious obesity comorbidity presence: with serious comorbidity Qualified Code(s): E66.09 - Other obesity due to excess calories
[2025-07-15] MEDS: ACETAMINOPHEN 500 MG TAB PO SCH (14:44)
[2025-07-15] MEDS: diphenhydrAMINE Capsule 25 MG CAP PO PRN (21:40)
[2025-07-15 22:37] VITALS: O2SAT 93
[2025-07-16 07:42] LABS: Hematocrit (blood only) 35.9 % (37.0-47.0); Hemoglobin 12.0 g/dL (12.0-16.0); Mean Corpuscular Hemoglobin 29.1 pg (25.0-34.0); Mean Corpuscular Volume 87.1 fL (80.0-100.0); Platelet Count 232 K/uL (130-400); RDW Standard Deviation 42.1 fL (36.4-46.3); Red Blood Count 4.12 M/uL (4.20-5.40); White Blood Count 11.64 K/ul (4.8-10.8)
--- NOTE | 2025-07-16 07:51 | Orthopedic Progress Note ---
Date of Service July 16, 2025 Assessment & Plan (1) Spondylolisthesis at L4-L5 level: * Continue Current Treatment * Disposition: TBD * Daily treatment: Physical Therapy/ Occupational Therapy per protocol * Weight bearing status: WBAT * Continue to monitor for ABLA * Pain control, will add scheduled acetaminophen and methocarbamol, d/c higher dose Dilaudid * DVT prophylaxis, stockings and SCDs * Office/hospital f/u 2 weeks for progress check and staple/suture removal * PT cleared for return to home * Plan for discharge today Subjective Active Problems: S/p L4-L5 Extreme Lateral Interbody Fusion Percutaneous Posterior Instrumentation POD 3 54 y/o female s/p L4-L5 Extreme Lateral Interbody Fusion Percutaneous Posterior Instrumentation. Low back and thigh pain/spasm improved from yesterday. Denies fever/chills, chest pain/SOB, nausea/vomiting. Otherwise no complaints. Review of Systems All systems reviewed & are unremarkable except as noted in HPI & below. Physical Exam * Musculoskeletal: Surgical dressing CDI. Lumbar spine region without obvious deformity, moderate ecchymosis at surgical site. Minimal tenderness of surgical region to light touch, otherwise no tenderness b/l buttock or LE. Lumbar flexion/extension and rotation ROM with minimal pain. AROM b/l hip flexion, knee flexion/extension, ankle flexion/extension intact. Sensation intact plantar/dorsal foot. Brisk capillary refill. Results & Data Results & Data Laboratory Results . Diagnostic Findings . PG Care Time/CCT Total # of Minutes Spent Total Time Spent with Patient: Total time spent is greater than 50% in coordination of care (as documented) at patient's floor/unit and/or counseling patient: Coding Level of Care Code 75129 Post Operative Follow-Up Diagnoses Spondylolisthesis at L4-L5 level M43.16
[2025-07-16 07:57] VITALS: BP 126/87; PULSE 64; RESP 18; TEMP 97.3
--- NOTE | 2025-07-16 08:48 | Discharge Summary ---
Date of Service July 16, 2025 Admission HPI (Per Admitting) Patient presents to hospital 07/13/2025 for elective L4-5 Extreme Lateral Interbody Fusion Percutaneous Posterior Instrumentation. Principal Diagnosis Same as "Discharge Diagnosis" noted below under Discharge Instructions. Discharge Exam * Musculoskeletal: Surgical dressing CDI. Lumbar spine region without obvious deformity, moderate ecchymosis at surgical site. Minimal tenderness of surgical region to light touch, otherwise no tenderness b/l buttock or LE. Lumbar flexion/extension and rotation ROM with minimal pain. AROM b/l hip flexion, knee flexion/extension, ankle flexion/extension intact. Sensation intact plantar/dorsal foot. Brisk capillary refill. Discharge Data Consultations 07/13/25 13:40 Consult Hospitalist Routine Procedures Performed Operation Date: 07/13/25 07:30 Actual Procedures p L4-L5 Extreme Lateral Interbody Fusion Percutaneous Posterior Instrumentation, Spinal Cord Monitoring(Not Applicable) - Clint Taylor MD Ordered Studies 07/13/25 07:30 CT lumbar spine wo con Routine FL lumbar spine 2-3V Routine Hospital Course (1) Spondylolisthesis at L4-L5 level: Patient presents to hospital 07/13/2025 for elective L4-5 Extreme Lateral Interbody Fusion Percutaneous Posterior Instrumentation. Procedure without co mplication. Postoperatively patient was admitted to hospital for observation, pain control, PT/OT evaluation. Additionally hospital medicine team was consulted for assistance with medical management. During her admission patient worked with PT/OT teams and was cleared for return home. Postoperative pain control was achieved via narcotic, muscle relaxer. POD 3 patient comfortable to return home, she will be discharged home with family support. All questions answered, will follow-up as scheduled with Dr. Taylor team. PG Care Time/CCT Total # of Minutes Spent Total Time Spent with Patient: Total time spent is greater than 50% in coordination of care (as documented) at patient's floor/unit and/or counseling patient: Discharge Plan Discharge Items Patient Disposition: Home - Self-Care Reason For Visit: Spondylolisthesis, Low Back Pain Radiating to Left Discharge Diagnosis: s/p lumbar fusion Activity: Per Instructions section Lifting: No more than 10 pounds Bathing: May shower/bathe in 3 days Weightbearing: Full weightbearing Non-emergency contact: Surgeon Call non-emergency contact if: your symptoms worsen, your temperature is above 101.5, your wound has increased redness and your wound has increased drainage Follow-up/Referrals: Rebecca Neumann MD [Primary Care Provider] - 07/27/25 11:30 am Diet: Regular Addtl Attending Provider Instructions: May shower on 3rd day after surgery. You can wash the incision and surgical site with soap and water briefly and then blot dry with a clean towel/cloth. Cover with a new, sterile dry dressing. If unable to change your dressing, then leave hospital dressing intact and cover the area for showering. Do NOT soak incision. No strenuous activity, lifting, or exercise until further instructed. Use the prescribed pain medication, or [id number] Tylenol, as needed for pain relief -- follow directions on the bottle; limit Tylenol to 4,000 mg maximum in a 24-hour period. No use of NSAIDs (i.e ibuprofen/Advil/Motrin, naproxen/Aleve, etc.) for at least 2 months after surgery Pending Studies at Discharge: No Stand-Alone Forms: My [facility] [employer], Smoking Cessation Medications and DC Order Prescriptions: New oxycodone 5 mg tablet 5 mg PO Q6H PRN (Reason: pain) Qty: 30 0RF Senokot Extra Strength 17.2 mg tablet 17.2 mg PO HS PRN (Reason: constipation) Qty: 14 0RF methocarbamol 500 mg tablet 500 mg PO Q8H Qty: 20 0RF Continued gabapentin 800 mg tablet 800 mg PO TID PRN (Reason: pain) Qty: 90 3RF albuterol sulfate 90 mcg/actuation HFA aerosol inhaler 2 puff inhalation Q6H PRN (Reason: shortness of breath or wheezing) Qty: 6.7 3RF ondansetron HCl 4 mg tablet 4 mg PO BID PRN (Reason: nausea and vomiting) Qty: 60 0RF furosemide [Lasix] 20 mg tablet 20 mg PO QAM Qty: 90 1RF celecoxib [Celebrex] 200 mg capsule 200 mg PO QAM Qty: 90 2RF omeprazole 40 mg capsule,delayed release(DR/EC) 40 mg PO QAM Qty: 90 1RF lisinopril 20 mg tablet 20 mg PO QAM Qty: 90 3RF venlafaxine 150 mg capsule,extended release 24hr 150 mg PO QAM Qty: 90 3RF Saccharomyces boulardii [Daily Probiotic (S. boulardii)] 250 mg capsule 250 mg PO QAM multivitamin Tablet 1 tab PO QAM lidocaine 5 % adhesive patch,medicated 1 patch topical DAILY PRN (Reason: Pain) Rx Instructions: leave on most painful area for up to 12 hrs fluticasone propion-salmeterol [Advair Diskus] 100-50 mcg/dose blister with device 1 inh inhalation QAM duloxetine 40 mg capsule,delayed release(DR/EC) 40 mg PO QAM No Action semaglutide 2 mg/dose (8 mg/3 mL) pen injector 2 mg subcut Q7D Qty: 3 5RF Patient Comments: tuesdays Rx Instructions: Diagnosis codes E11.9 and E66.9 hydrocodone-acetaminophen 5-325 mg tablet 1 tab PO TID PRN (Reason: pain) Qty: 14 0RF Discharge Orders: Discharge Order (Routine); Ordered 07/16/25 Ordered By: Ant Sykes/Other Patient Handouts: RICE, Taking Opioid Medicine Admission Data Admit Date/Time: 07/14/25 11:02 Attending Provider: Clint Taylor Admit Provider: Clint Taylor Primary Care Provider: Rebecca Neumann Other Providers: Luis Gant Other Interventions: Discharge Summary Assessment (RN) Last Done: 07/16/25 09:59
[2025-07-16] MEDS: LANTUS PER UNIT CHARGE SC SCH (09:09)
== END 2025-07-16 10:53 | disposition home or self-care (01) | DRG 451 ==
LOC: 3N 05:48 → ASU 05:48